=== PATIENT | female | born 1980 | race Caucasian/White ===

== ENCOUNTER → 2020-12-09 14:04 | Outpatient (CLI) | payer OTHER, SELFPAY | PROVIDERS: Referring Provider Physician Assistant; Visit Provider Physician Assistant | DX: U07.1 COVID-19 (principal) | CPT/HCPCS: 87635; U0005; U0003 ==

== ENCOUNTER 2020-12-15 09:59 | Emergency (ER) | payer OTHER, SELFPAY ==
[2020-12-15 10:00] VITALS: BP 105/86; PULSE 104; RESP 18; TEMP 36.3; O2SAT 100; BMI 23.1
[2020-12-15 10:13] VITALS: BP 101/73; PULSE 83; RESP 18; TEMP 36.3; O2SAT 100
--- NOTE | 2020-12-15 10:18 | EKG12_ITS ---
Test Reason : SOB Blood Pressure : / mmHG Vent. Rate : 078 BPM Atrial Rate : 078 BPM P-R Int : 126 ms QRS Dur : 068 ms QT Int : 366 ms P-R-T Axes : 065 038 032 degrees QTc Int : 417 ms Normal sinus rhythm Normal ECG Confirmed by ABDIFATAH RIVERS, JENNIFER ([id number]), editor continuity and script PAULINA ALVARADO ([id number]) on 12/16/2020 9:23:07 AM Referred By: YASMANI Confirmed By:JENNIFER GARDINER MD
--- NOTE | 2020-12-15 10:19 | EDS_ITS ---
HPI HPI - URI History of Present Illness Chief Complaint: Cough Informant: patient Onset/Context/Timing Onset: Days Context: Gradual Onset Timing: Continuous Current Severity: Mild Maximum Severity: Mild Associated Symptoms Associated Symptoms: Positive for Myalgias, Chest Pain and Nonproductive cough; Negative for Nasal Congestion, Headache, Sinus Pressure, Nausea, Vomiting, Diarrhea and Hemoptysis Narrative Narrative: 32-year-old female no seen past medical history. Has had Covid symptoms for 8 days and tested +1-week ago on Tuesday. She denies any hemoptysis. She says she has a cough and some mild chest discomfort. She had fevers is since resolved. She denies any nausea, vomiting or diarrhea. No hemoptysis. No history of DVT or PE in the past. No recent travel, surgery or immobilization. No leg pain or swelling. Prior similar symptoms: No Recent Illness/Hospitalization: No ROS ROS ED ROS Narrative Cough, fever and chest pain. Review of Systems ROS Unobtainable: Denies due to encephalopathy Constitutional Constitutional ED: Reports fever(s) Eyes Eyes: Denies change in vision ENT ENT ED: Denies ear pain or sore throat Cardiovascular Cardiovascular: Reports chest pain Respiratory/Chest Respiratory/Chest: Reports cough; Denies dyspnea Gastrointestinal Gastrointestinal: Denies abdominal pain, diarrhea, nausea or vomiting Genitourinary Genitourinary ED: Denies dysuria Musculoskeletal Musculoskeletal: Denies myalgias Integumentary Denies rash Neurologic Neurologic: Denies headache(s) Psychiatric Psychiatric: Denies depression Endocrine Endocrinology: Denies polyuria Hematologic/Lymphatic Hematologic/Lymphatic: Denies easy bruising Allergic/Immunologic Allergic/Immunologic ED: Denies urticaria PFSH PFSH Medical History no medical history no medical history Home Medications cephalexin 500 mg PO Q6 11/26/14 [History Last Taken Unknown] dexamethasone [Decadron] 6 mg PO DAILY 7 Days #7 tab 12/15/20 [Rx Last Taken Unknown] Allergy/AdvReac Type Severity Reaction Status Date / Time No Known Allergies Allergy Verified 12/15/20 10:00 Social History Smoking Status: Never smoker EXAM Physical Exam Narrative Exam Narrative: 40-year-old female no acute distress vital signs stable afebrile. Pulse ox 9% on room air no signs of hypoxia. HEENT exam normal. Moist with membranes. Neck nontender no JVD. Lungs clear to auscultation bilaterally. Heart regular rhythm no murmur. Normal bowel sounds no peritoneal signs. Moving all 4 extremities. Calves nontender without edema or cords. Back nontender. Neurologic exam normal. Const Vital Signs: 12/15/20 10:00 12/15/20 10:12 12/15/20 10:13 Temperature 97.4 F L 97.4 F L Temperature Source Temporal Temporal Pulse Rate 104 H 83 Respiratory Rate 18 18 Respiratory Effort Normal Non-Labored Respiratory Depth Normal Respiratory Pattern Normal Blood Pressure 105/86 H 101/73 Blood Pressure Mean 92 82 Pulse Ox 100 100 Oxygen Delivery Method Room Air Room Air Room Air 12/15/20 10:37 12/15/20 12:32 Temperature Temperature Source Pulse Rate 78 Respiratory Rate 16 Respiratory Effort Respiratory Depth Respiratory Pattern Blood Pressure 95/64 Blood Pressure Mean 74 Pulse Ox 98 Oxygen Delivery Method Room Air Room Air Positive well nourished and well developed; Negative for obese, cachectic or contractures General Appearance ED: well developed and NAD; Negative for cachectic, contractures, cyanotic or diaphoretic Nutritional Appearance: Negative for cachectic or obese HEENT normocephalic and atraumatic Eyes PERRL and EOMs intact bilaterally Neck no lymphadenopathy, supple, no meningeal signs and no JVD General: Negative for anterior neck swelling Resp normal respiratory effort and clear to auscultation bilaterally Auscultation: Negative for rales, rhonchi or wheezes Cardio S1 normal heart sound, S2 normal heart sound and no murmurs Rate: regular rate Rhythm: regular rhythm GI non-tender, non-distended and no masses Auscultation: normoactive bowel sounds Palpation: soft; Negative for tender or guarding Back/Spine no CVA tenderness Extremity normal to inspection and full ROM General Extremety ED: Negative for cyanosis or tenderness General Extremity: Negative for cyanosis Neuro oriented x3 Sensorium / Orientation: alert, oriented to person, oriented to place and oriented to time; Negative for orientation impaired, lethargic or stuporous Motor Exam: strength 5/5 throughout Psych mental status grossly normal Skin Lesions: no lesions Rashes: no rashes MDM MDM MDM Narrative Medical decision making narrative: 40-year-old female Covid for 8 days. Chest pain. Exam benign. I think this is a Covid related lung inflammation. X-rays and labs are being obtained. My suspicion for PE is quite low and D-dimer will be obtained. Repeat exam patient is doing well at 2:24 PM. She had I went over her test results and her chest x-ray. We discussed her D-dimer. Clinically I think her chest discomfort is from the inflammation from the Covid pneumonitis. We are choosing not to do a CTA at this time. She will be started on Decadron which she was given a dose already earlier today. And she will follow up with her primary care physician if not improving or feeling worse. Lab Data Attestation: I reviewed the patient's lab results. Lab results narrative: BMP unremarkable gap of 5 BUN and creatinine of 8 and 1. Glucose 105. CBC shows a white count 1.7. Hemoglobin 13. Platelet count is low a t 90. Labs: Laboratory Results - last 24 hr 12/15/20 12/15/20 12/15/20 10:35 10:35 10:35 WBC 1.7 L RBC 4.11 L Hgb 13.0 Hct 38.3 MCV 93.2 MCH 31.6 MCHC 33.9 RDW Std Deviation 39.8 RDW Coeff of Popeye 11.7 Plt Count 90 L MPV 10.1 Immature Gran % (Auto) 0.600 Neut % (Auto) 59.1 Lymph % (Auto) 32.5 [place] % (Auto) 7.2 Eos % (Auto) 0.0 Baso % (Auto) 0.6 Absolute Neuts (auto) 1.0 L Absolute Lymphs (auto) 0.54 L Nucleated RBC % 0 Differential Comment Diff Path Review May foll Atypical Lymphocytes 2+ Platelet Estimate MOD DEC RBC Morphology NORM C+C D-Dimer Quant (PE/DVT) 0.53 H* Sodium 136 Potassium 3.8 Chloride 100 Carbon Dioxide 31.0 Anion Gap 5 BUN 8 Creatinine 1.01 Estim Creat Clear Calc 65.22 Est GFR (MDRD) Af Amer 79 Est GFR (MDRD) Non-Af 65 BUN/Creatinine Ratio 7.9 L Glucose 105 Calcium 8.0 L Radiography Diagnostic Testing: Clinical Impression(s) from Imaging Studies Chest X-Ray 12/15/20 10:44 IMPRESSION: Patchy bilateral pulmonary infiltrates worse on the right side. Electronically Signed: Luis Adler MD at 11:21 EDT , Service support , Rhythm Strip Rhythm Strip: Sinus Rhythm Rate: 78 Ectopy: None EKG Initial EKG: Attestation: I personally reviewed and interpreted this EKG as follows: Interpretation: Sinus Rhythm and No Acute Injury Pattern Comments: Normal sinus rhythm rate of 78 no acute signs of KS or ischemia. Prior EKG tracings: not available for review Discharge Plan Triage Chief Complaint: Cough ED Provider: David Ha Dx/Rx/DC Orders Clinical Impression: COVID-19 Instructions: Human Coronaviruses Prescriptions: New dexamethasone [Decadron] 6 mg tablet 6 mg PO DAILY 7 Days Qty: 7 RF: 0 No Action cephalexin 500 MG capsule 500 mg PO Q6 RF: 0 Primary Care Provider: Care Physician,No Primary Referrals: Jose Myers MD [STAFF PHYSICIAN] - 10-14 Days if not better Care Physician,No Primary [Primary Care Provider] - Activity Restrictions/Additional Instructions: Decadron daily to help decrease inflammation in your lungs. Tylenol and/or Motrin for pain. Follow-up if not improving return emergency department if you are feeling a lot worse. Disposition Disposition: Home, Self Care
[2020-12-15] MEDS: dexAMETHasone 4 MG Tablet 6 MG PO (10:29)
--- NOTE | 2020-12-15 10:29 | NURSING ---
NO OLD EKGS
[2020-12-15 10:43] LABS: Absolute Lymphocyte Count 0.54 X10^3/uL (0.83-4.51); Basophil# 0.01 X10^3/uL; Basophil% 0.6 % (0-1); Hematocrit 38.3 % (37-47); Lymphocyte # 0.54 X10^3/ul (0.83-4.51); Lymphocyte % 32.5 % (19-41); Mean Corp Hgb Conc 33.9 g/dL (32-36); Mean Corpuscular Hgb 31.6 pg (27.0-32.0); Mean Corpuscular Volume 93.2 fL (81-99); Mean Platelet Vol. 10.1 fl (6.2-12.0); Monocyte# 0.12 X10^3/uL; Monocyte% 7.2 % (0-10); NRBC Flagged by Analyzer 0 % (0-5); Neutrophil # 0.98 X10^3/uL (2.7-7.7); Neutrophil % 59.1 % (47-70); POSITIVE COUNT YES; POSITIVE DIFFERENTIAL YES; POSITIVE MORPHOLOGY YES; Platelet Count 90 K/mm3 (150-450); RBC Distribution Width CV 11.7 % (11.6-14.6); RBC Distribution Width SD 39.8 fl (35.1-43.9); Red Blood Count 4.11 M/mm3 (4.2-5.4); White Blood Count 1.7 K/mm3 (4.4-11.0)
--- NOTE | 2020-12-15 10:44 | RAD_ITS ---
STUDY: X-RAY CHEST REASON FOR EXAM: Female, 40 years old. Cough and chest pain. History of Covid positive. TECHNIQUE: Single AP portable view of the chest. COMPARISON: None. FINDINGS: EKG electrodes are seen. Patchy bilateral pulmonary infiltrates slightly worse on the right side. There is no demonstrated pleural abnormality. Normal size heart. Normal mediastinum and mikey. Normal visualized pulmonary arteries. Normal visualized aortic arch and descending thoracic aorta. Normal visualized thoracic spine. Normal visualized ribs, clavicles, and shoulders. There is no demonstrated abnormality of the visualized soft tissue structures of the upper abdomen. RAD/Chest 1 View (Portable) IMPRESSION: Patchy bilateral pulmonary infiltrates worse on the right side. Electronically Signed: Luis Adler MD at 11:21 EDT , Service support ,
[2020-12-15 10:54] LABS: Anion Gap 5 (5-15); BUN 8 mg/dL (7-18); BUN/Creat Ratio 7.9 RATIO (10-20); Chloride 100 mmol/L (98-107); Creatinine, Serum 1.01 mg/dL (0.55-1.02); EST Glomerular Filtration Rate 65 mL/min (>60); Est Glom Filt Rate - Afr Amer 79 mL/min (>60); Estimated Creatinine Clearance 65.22 ml/min; Glucose 105 mg/dL (74-106); Potassium 3.8 mmol/L (3.5-5.1); Sodium Level 136 mmol/L (136-145)
[2020-12-15 10:56] LABS: Differential Indicated SCAN CRITERIA MET
[2020-12-15 11:06] LABS: D-Dimer Quantitative (DVT/PE) 0.53 FEU/ug/m (0.27-0.49)
[2020-12-15 11:17] LABS: Atypical Lymphocyte 2+ %; Platelet Estimate MOD DEC (ADEQ); Red Cell Morphology NORM C+C NORMAL (NORM C&C)
[2020-12-15 12:32] VITALS: BP 95/64; PULSE 78; RESP 16; O2SAT 98
[2020-12-15 14:24] VITALS: BP 93/63; PULSE 78; RESP 22; O2SAT 96
[2020-12-15 14:35] VITALS: BP 93/63; PULSE 78; RESP 22; O2SAT 96
[2020-12-16 09:56] LABS: Pathologist Review Reviewed
== END 2020-12-15 14:36 | disposition home or self-care (01) ==
PROVIDERS: Emergency Provider Emergency Medicine
DX: U07.1 COVID-19 (principal)
CPT/HCPCS: 71045; 80048; 85025; 85379; 93005; 99285

== ENCOUNTER 2023-01-30 17:57 | Emergency (ER) | payer OTHER, SELFPAY ==
[2023-01-30 17:58] VITALS: BP 109/73; PULSE 55; RESP 16; TEMP 36.7; O2SAT 98; BMI 23.5
[2023-01-30] MEDS: Diphth,Pertuss(Acell),Tet Vac 0.5 ML Vial IM (18:21)
--- NOTE | 2023-01-30 18:42 | EDS_ITS ---
<Statement entered by Emerita Vazquez MD - 01/30/23 19:38> I have personally performed a face to face assessment of the patient and have reviewed the TAVO Note. Patient presents secondary to left thumb laceration. She was using a knife to separate to hamburger patties when the knife slipped and cut her left thumb. She is right-hand dominant. She reports good range of motion and sensation after the injury. Patient sitting upright in bed no acute distress. Left upper extremity examination reveals a V-shaped laceration over the extensor portion of the left thumb abutting the base of the nail. Full range of motion is noted. Laceration repair performed by motorboat mechanic helper. Wound care discussed. Tetanus update has been provided. HPI History of Present Illness Chief Complaint: Laceration Narrative Narrative: Patient is a 42-year-old female with history of shingles to the left eye as a child, partial blindness left eye, presents to the emergency department with left thumb laceration. She was trying to break apart frozen hamburgers when the knife slipped, struck her to the back part of the left thumb. Patient dates is a flap-like laceration, she was concerned about the bleeding is here for evaluation. Tetanus vaccination unknown [facility] Medical History (Updated 01/30/23 @ 18:45 by JESE Kenyon) History of shingles Partial blindness Home Medications levonorgestrel-ethinyl estradiol 0.1 mg-20 mcg tablet 1 tab PO DAILY 01/30/23 [History Last Taken Unknown] prednisolone acetate 1 % eye drops,suspension 1 drp ophthalmic (eye) DAILY 01/30/23 [History Last Taken Unknown] Allergy/AdvReac Type Severity Reaction Status Date / Time cobalt Allergy PT UNSURE Verified 01/30/23 18:14 OF REACTION Social History Smoking Status: Never smoker ROS ROS ED ROS Narrative Constitutional: Negative for fever, chills, weight loss, weakness Eyes: Negative for vision loss, vision change, double vision ENT: Negative for any sore throat, ear pain, congestion Cardiovascular: Negative for any chest pain, tightness, palpitations Respiratory: Negative for any cough, sputum production, hemoptysis, dyspnea, dyspnea on exertion, orthopnea Gastrointestinal: Negative for any abdominal pain, nausea, vomiting, diarrhea, constipation, blood in stool, blood in vomit : Negative for any urinary frequency, dysuria, retention, blood in urine Muscle skeletal: Negative for any myalgias, arthralgias, neck pain, back pain. Positive for left thumb pain Neurological: Negative for any headache, syncope, numbness or tingling, dizziness Skin: Negative for any rashes, lumps, itching, abrasions. Left thumb laceration Psychiatric: Negative for any depression, anxiety, stress, suicidal ideation, homicidal ideation Hematologic: Negative for any easy bruising, excessive bruising, easy bleeding Allergies: Negative for any eczema, hives, rash EXAM Physical Exam Narrative Exam Narrative: Vital signs reviewed. Extremities: No peripheral edema, no signs of gross trauma or deformity. Active full range of motion of all extremities. Patient is a 2 cm V like laceration with the pointing of the V at the base of the nail on the dorsal aspect of the left thumb. Patient able to flex and extend without any difficulty. There is no tendon involvement. Denies any numbness or tingling. No foreign body noted. Neuro: Cranial nerves II through XII intact, no focal neurological deficits. Skin: Clean dry and intact with no rash, purpura, petechiae, vesicles or pustules. Backs/flank: No CVA tenderness, no midline spinal tenderness, no deformity. Psych: Normal mood and affect. No SI, HI or acute psychosis. Const Vital Signs: 01/30/23 17:58 Temperature 98.1 F Temperature Source Temporal Pulse Rate 55 L Respiratory Rate 16 Blood Pressure 109/73 Blood Pressure Mean 85 Pulse Ox 98 Oxygen Delivery Method Room Air PROC Procedures Lacerations Left thumb laceration: Length: 0.98 in Shape: Flap Prep: Sterile Conditions and Chlorhexadine Laceration repair: Digital block Irrigated (ml): 200 Number of Sutures/Hatley: 6 Suture Information: Simple and 5-0 Comment: Sterile gloves, sterile drapes MDM MDM Treatment and Re-Evaluation Narrative: Patient appears generally well, patient appears nontoxic, vital signs are stable. Patient presents the emergency department the 2 cm left thumb laceration. There is no tendon involvement. This area was at the times, irrigated, sterile gloves, sterile drapes were used. No x-ray indicated. I did place 6 simple ruptured sutures. Edges approximated nicely. She placed in a thumb spica. Instructed to have these removed in 10 days. Was given return precaution. Up-to-date on her tetanus vaccination today. Stable for discharge. Discharge Plan Triage Chief Complaint: Laceration ED Midlevel Provider: Khadar Brown ED Provider: Emerita Vazquez Dx/Rx/DC Orders Clinical Impression: Laceration of thumb Instructions: ED Laceration Hand with ... Prescriptions: No Action levonorgestrel-ethinyl estrad 0.1-20 mg-mcg tablet 1 tab PO DAILY Patient Comments: take 1 tablet by mouth once daily prednisolone acetate 1 % drops,suspension 1 drp ophthalmic (eye) DAILY Patient Comments: INSTILL 1 DROP INTO LEFT EYE EVERY DAY Primary Care Provider: Care Physician,No Primary Referrals: Care Physician,No Primary [Primary Care Provider] - Activity Restrictions/Additional Instructions: Sutures out in 10 days Disposition Disposition: Home, Self Care
== END 2023-01-30 19:05 | disposition home or self-care (01) ==
PROVIDERS: Emergency Provider Emergency Medicine; Visit Provider Emergency Medicine
DX: S61.012A Laceration without foreign body of left thumb without damage to nail, initial encounter (principal); X58.XXXA Exposure to other specified factors, initial encounter
CPT/HCPCS: 90715; 99283